=== PATIENT | male | born 1960 | race African-American/Black ===

== ENCOUNTER → 2016-09-09 | Outpatient (CLI) | payer OTHER ==
--- NOTE | 2016-09-10 01:58 | REP ---
Clinical: Chronic cough. Technique: PA and lateral. Comparison: None. Findings: Lung bravo demonstrate mild chronic appearing changes without consolidation, effusion, or pneumothorax. Mediastinum and cardiac silhouette are normal. Skeletal structures are intact. Impression: Mild chronic-appearing changes. If the patient remains symptomatic consider chest CT for further investigation as no prior examinations are available for comparison. Signed by Kenrick Alvarado MD 09/10/2016 01:50 A
== END ==
LOC: M RAD 08:50
PROVIDERS: ATTEND Surgery
DX: R05 Cough (principal)